=== PATIENT | male | born 1950 | race Caucasian/White ===

== ENCOUNTER 2024-05-06 09:10 | Day surgery (SDC) | payer MEDICARE ==
[~2024-05-06] VITALS: Ht 182.9 cm; Wt 92.9 kg
[~2024-05-06 09:10] MED LIST: Lactated Ringer's 1,000 ML IV ONE; Lidocaine 2%-Epineph 1:100000 20 ML MDV ONE
[2024-05-06] MEDS ORDERED: propofoL 20 ML IV ONE (09:21)
[2024-05-06] MEDS ORDERED: FentaNYL Citrate 50 MCG/ML 2 ML Injection ONE ×2 (09:22→14:08)
[2024-05-06] MEDS ORDERED: JARDIANCE10 MG PO (09:33)
[2024-05-06] MEDS ORDERED: ATOR40TA PO (09:37)
[2024-05-06] MEDS ORDERED: GLIMEPIRIDE4 MG PO (09:37)
[2024-05-06] MEDS ORDERED: METFORMIN HCL500 M3 PO (09:38)
[2024-05-06] MEDS ORDERED: LOSARTAN POTASS25 M2 PO (09:38)
[2024-05-06] MEDS ORDERED: KAPSPARGO SPRIN50 MG PO (09:39)
[2024-05-06] MEDS ORDERED: PRAZ2 PO (09:39)
[2024-05-06] MEDS ORDERED: NS 50 ML IV ONE (09:46)
[2024-05-06] MEDS ORDERED: CeFAZolin Sodium 2,000 MG VIAL ONE (09:46)
[2024-05-06] MEDS ORDERED: Lactated Ringer's 1,000 ML IV ONE (09:54)
--- NOTE | 2024-05-06 10:17 | NUR ---
05/06/24 1017 Cat Prieto PATIENT IN BED WITH CALL LIGHT WITHIN REACH, AT BEDSIDE.
[2024-05-06] MEDS ORDERED: Dexamethasone Sod Phos 10 MG/ML 1ML VIAL ONE (11:05)
[2024-05-06] MEDS ORDERED: Ondansetron HCl 2 MG / ML 2ML Vial ONE (11:05)
[2024-05-06] MEDS ORDERED: ePHEDrine Sulfate 50 MG/ML 1ML Injection ONE (11:20)
[2024-05-06] MEDS ORDERED: Lidocaine 2%-Epineph 1:100000 20 ML MDV INJ ONE (11:23)
--- NOTE | 2024-05-06 13:13 | NUR ---
05/06/24 1313 PHILLIP MEHTA PT DENIES PAIN AND NAUSEA.
[2024-05-06] MEDS ORDERED: Ketorolac Tromethamine 30mg Vial ONE (13:41)
[2024-05-06] MEDS ORDERED: OxyCODONE HCL 5 MG TAB ONE (14:18)
[2024-05-06 14:25] VITALS: BP 173/73
== END 2024-05-06 14:39 | disposition home or self-care (01) ==
LOC: ORSCSDS 09:10
PROVIDERS: Orthopaedic Surgery
PROC: 0SQC4ZZ Repair Right Knee Joint, Percutaneous Endoscopic Approach (ICD-10-PCS; principal; 2024-05-06 11:15)
DX: S83.281A Other tear of lateral meniscus, current injury, right knee, initial encounter (principal); S83.241A Other tear of medial meniscus, current injury, right knee, initial encounter; I10 Essential (primary) hypertension; E78.5 Hyperlipidemia, unspecified; E11.9 Type 2 diabetes mellitus without complications; Z79.84 Long term (current) use of oral hypoglycemic drugs; Z79.899 Other long term (current) drug therapy
CPT/HCPCS: 82947; A9270; C1713; J0690; J1100; J1885; J2405; J2704; J3010; J7120